=== PATIENT | male | born 1960 | race Hispanic/Latino ===

== ENCOUNTER 2021-04-22 06:36 | Observation (INO) | payer OTHER ==
[2021-04-21 11:44] LABS: BASOPHILS # (AUTO) 0.1 (0.0-0.1); BASOPHILS % 0.8 % (0.0-1.0); EOSINOPHILS # (AUTO) 0.3 (0.0-0.4); EOSINOPHILS % 3.8 % (0.0-6.0); HEMATOCRIT 40.6 % (38.2-49.6); HEMOGLOBIN 13.7 g/dL (14.0-18.0); LYMPHOCYTES % 11.7 % (18.0-39.1); MEAN CORPUSCULAR HEMOGLOBIN 30.9 pg (28-32); MEAN CORPUSCULAR HGB CONC 33.7 g/dL (31-35); MEAN CORPUSCULAR VOLUME 91.6 fL (81-99); MONOCYTES # (AUTO) 0.5 (0.2-0.8); MONOCYTES % 6.4 % (4.4-11.3); NEUTROPHILS # (AUTO) 6.4 (2.1-6.9); NEUTROPHILS % 76.9 % (38.7-80.0); PLATELET COUNT 252 x10e3/uL (140-360); RED BLOOD COUNT 4.43 x10e6/uL (4.3-5.7); RED CELL DISTRIBUTION WIDTH 12.9 % (11.7-14.4)
[2021-04-21 11:55] LABS: INR 0.91; PROTHROMBIN TIME 12.4 seconds (11.9-14.5)
[2021-04-21 11:56] LABS: PARTIAL THROMBOPLASTIN TIME 28.6 seconds (23.8-35.5)
[2021-04-21 12:02] LABS: CREATININE, SERUM 0.98 mg/dL (0.72-1.25)
[~2021-04-22] VITALS: Ht 167.6 cm; Wt 102.1 kg
[~2021-04-22 06:36] MED LIST: AMLODIPINE BESY10 MG PO; ATORVASTATIN CA20 MG PO; FUROSEMIDE40 MG PO; LEXAPRO10 MG PO; LISINOPRIL10 MG PO; MELOXICAM7.5 MG PO; METOPROLOL TART25 MG PO; MONTELUKAST SOD10 MG PO; OMEPRAZOLE40 MG PO; TRELEGY ELLIPT1 EAC1 INH
[2021-04-22] MEDS ORDERED: SODIUM CHLORIDE 0.9% 50ML 100 ML ONE (07:00)
[2021-04-22] MEDS ORDERED: ROPIVACAINE 246.25 MG, EPINEPHRINE HCL 1:1000 1ML 0.5 MG, CLONIDINE HCL 0.08 MG, KETORO... INJ ONE ×5 (07:30)
[2021-04-22] MEDS ORDERED: SUGAMMADEX SODIUM 200 MG/2 ML VIAL IV ONE (10:19)
[2021-04-22] MEDS ORDERED: TRANEXAMIC ACID 1,000 MG/10 ML ML ONE (11:00)
[2021-04-22] MEDS ORDERED: HYDROMORPHONE 1MG/1ML INJ ONE ×2 (11:20→11:42)
[2021-04-22] MEDS ORDERED: KETOROLAC TROMETHAMINE 30 MG/ML VIAL ONE (11:31)
[2021-04-22] MEDS ORDERED: FENTANYL CITRATE/PF 100MCG/2 ML INJ ONE (12:36)
[2021-04-22 13:25] VITALS: BP 136/84
[2021-04-22 13:49] VITALS: BP 136/84
[2021-04-22 16:00] VITALS: BP 124/78
[2021-04-22 16:34] VITALS: BP 124/78
[2021-04-22] MEDS ORDERED: HYDROCODONE/APAP 10MG-325MG TAB PO PRN (17:00)
== END 2021-04-22 18:49 | disposition home or self-care (01) ==
LOC: OR 06:36 → PACU V 11:14 → MED/SURG 13:10
PROVIDERS: ADMIT Orthopaedic Surgery; ATTEND Orthopaedic Surgery
DX: M17.11 Unilateral primary osteoarthritis, right knee (principal); M25.561 Pain in right knee; Z01.810 Encounter for preprocedural cardiovascular examination; Z01.812 Encounter for preprocedural laboratory examination; Z20.822 Contact with and (suspected) exposure to COVID-19; G47.33 Obstructive sleep apnea (adult) (pediatric); I10 Essential (primary) hypertension
CPT/HCPCS: 27447; 36415; 73560; 80048; 85025; 85610; 85730; 86850; 86900; 86920; 93005; 97116; 97162; 97530; C1713 ×3; C1776 ×2; G0378; J0171; J0690; J1170; J1885; J2795; J3010; U0002

== ENCOUNTER 2024-07-09 18:20 | Emergency (ER) | payer OTHER ==
[~2024-07-09] VITALS: Ht 167.6 cm; Wt 112.5 kg
[~2024-07-09 18:20] MED LIST changes: +ULTRAM 50MG50 MG PO
[2024-07-09 18:27] VITALS: TEMP 98.9
[2024-07-09] MEDS: ALBUTEROL SULF 0.083% NEB SOLN 3 ML NEB NEB STA (18:49)
[2024-07-09] MEDS: IPRATROPIUM BROMIDE 0.02% 2.5 ML NEB NEB ONE (18:50)
[2024-07-09 18:52] VITALS: PULSE 72; RESP 25; O2SAT 98
[2024-07-09 18:52] LABS: BASOPHILS % 0.5 % (0.0-1.0); EOSINOPHILS # (AUTO) 0.4 (0.0-0.4); EOSINOPHILS % 4.5 % (0.0-6.0); HEMATOCRIT 40.7 % (38.2-49.6); HEMOGLOBIN 14.1 g/dL (14.0-18.0); LYMPHOCYTES # (AUTO) 1.2 (1.0-3.2); LYMPHOCYTES % 15.1 % (18.0-39.1); MEAN CORPUSCULAR HEMOGLOBIN 32.7 pg (28-32); MEAN CORPUSCULAR HGB CONC 34.6 g/dL (31-35); MEAN CORPUSCULAR VOLUME 94.4 fL (81-99); MONOCYTES # (AUTO) 0.7 (0.2-0.8); MONOCYTES % 7.9 % (4.4-11.3); NEUTROPHILS # (AUTO) 5.8 (2.1-6.9); NEUTROPHILS % 71.4 % (38.7-80.0); PLATELET COUNT 197 x10e3/uL (140-360); RED BLOOD COUNT 4.31 x10e6/uL (4.3-5.7); RED CELL DISTRIBUTION WIDTH 12.9 % (11.7-14.4); WHITE BLOOD COUNT 8.19 x10e3/uL (4.8-10.8)
[2024-07-09] MEDS: METHYLPREDNISOLONE SOD SUCC 125 MG/2ML VIAL IV ONE (18:53)
[2024-07-09 19:15] LABS: ALBUMIN 3.5 g/dL (3.5-5.0); ALBUMIN/GLOBULIN RATIO 1.1 (0.8-2.0); ANION GAP 16.8 mmol/L (8-16); BILIRUBIN,TOTAL 0.5 mg/dL (0.2-1.2); CALCIUM 8.6 mg/dL (8.4-10.2); CREATININE, SERUM 0.89 mg/dL (0.72-1.25); POTASSIUM 3.8 mmol/L (3.5-5.1); TOTAL PROTEIN 6.6 g/dL (6.5-8.1)
[2024-07-09 19:21] LABS: TROPONIN I 0.002 ng/mL (0-0.300)
[2024-07-09 19:45] VITALS: PULSE 82; RESP 20
[2024-07-09] MEDS ORDERED: MEDROL4 M2 PO (20:08)
[2024-07-09 20:19] VITALS: BP 151/71; PULSE 82; RESP 22; O2SAT 100
== END 2024-07-09 20:21 | disposition home or self-care (01) ==
LOC: ER 18:33
DX: R06.02 Shortness of breath (principal); J45.901 Unspecified asthma with (acute) exacerbation; I10 Essential (primary) hypertension; I50.9 Heart failure, unspecified; E78.5 Hyperlipidemia, unspecified; J45.909 Unspecified asthma, uncomplicated; F32.A Depression, unspecified; G47.30 Sleep apnea, unspecified; E66.9 Obesity, unspecified
CPT/HCPCS: 36415; 71045; 80053; 82550; 83880; 84484; 85025; 93005; 94640; 94799; 99284; J2919

== ENCOUNTER 2024-09-04 17:40 | Emergency (ER) | payer MEDICARE ==
[~2024-09-04] VITALS: Ht 167.6 cm; Wt 120.2 kg
[~2024-09-04 17:40] MED LIST changes: +DEXAMETHASONE4 MG PO; +DOXYCYCLINE HY100 MG PO; +MEDROL4 M2 PO
[2024-09-04 18:56] LABS: BASOPHILS % 0.5 % (0.0-1.0); EOSINOPHILS # (AUTO) 0.3 (0.0-0.4); EOSINOPHILS % 4.9 % (0.0-6.0); HEMATOCRIT 40.5 % (38.2-49.6); HEMOGLOBIN 13.5 g/dL (14.0-18.0); LYMPHOCYTES % 16.2 % (18.0-39.1); MEAN CORPUSCULAR HEMOGLOBIN 32.3 pg (28-32); MEAN CORPUSCULAR HGB CONC 33.3 g/dL (31-35); MEAN CORPUSCULAR VOLUME 96.9 fL (81-99); MONOCYTES # (AUTO) 0.5 (0.2-0.8); MONOCYTES % 7.9 % (4.4-11.3); NEUTROPHILS # (AUTO) 4.2 (2.1-6.9); NEUTROPHILS % 70.2 % (38.7-80.0); PLATELET COUNT 177 x10e3/uL (140-360); RED BLOOD COUNT 4.18 x10e6/uL (4.3-5.7); RED CELL DISTRIBUTION WIDTH 12.4 % (11.7-14.4); WHITE BLOOD COUNT 5.92 x10e3/uL (4.8-10.8)
[2024-09-04] MEDS: HYDROCODONE/APAP 10MG-325MG TAB PO ONE (19:07)
[2024-09-04 19:20] LABS: ALBUMIN 3.4 g/dL (3.5-5.0); ALBUMIN/GLOBULIN RATIO 1.1 (0.8-2.0); ANION GAP 15.1 mmol/L (8-16); BILIRUBIN,TOTAL 0.5 mg/dL (0.2-1.2); CALCIUM 8.9 mg/dL (8.4-10.2); CREATININE, SERUM 0.85 mg/dL (0.72-1.25); POTASSIUM 4.1 mmol/L (3.5-5.1); TOTAL PROTEIN 6.4 g/dL (6.5-8.1)
[2024-09-04] MEDS ORDERED: HYDROCODON-ACE1 EAC9 PO (22:32)
[2024-09-04 22:45] VITALS: PULSE 71; RESP 17; TEMP 98.7; O2SAT 97
== END 2024-09-04 22:55 | disposition home or self-care (01) ==
LOC: ER 18:34
DX: R06.02 Shortness of breath (principal); S52.125A Nondisplaced fracture of head of left radius, initial encounter for closed fracture; M25.422 Effusion, left elbow; J45.909 Unspecified asthma, uncomplicated; I10 Essential (primary) hypertension; I50.9 Heart failure, unspecified; E78.5 Hyperlipidemia, unspecified; E66.9 Obesity, unspecified; G47.30 Sleep apnea, unspecified; F32.A Depression, unspecified; Z96.653 Presence of artificial knee joint, bilateral
CPT/HCPCS: 36415; 71045; 80053; 83880; 84484; 85025; 93005; 93971; 99284

== ENCOUNTER 2025-01-05 03:43 | Emergency (ER) | payer MEDICARE ==
[~2025-01-05] VITALS: Ht 167.6 cm; Wt 124.7 kg
[2025-01-05 03:43] VITALS: TEMP 98
[~2025-01-05 03:43] MED LIST changes: +HYDROCODON-ACE1 EAC9 PO
[2025-01-05] MEDS ORDERED: ALBUTEROL SULF 0.083% NEB SOLN 3 ML NEB ONE (03:53)
[2025-01-05 03:58] VITALS: PULSE 63; RESP 20; O2SAT 98
[2025-01-05] MEDS: METHYLPREDNISOLONE SOD SUCC 125 MG/2ML VIAL IV ONE (04:02)
[2025-01-05] MEDS: ALBUTEROL SULF 0.083% NEB SOLN 3 ML NEB NEB STA (04:02)
[2025-01-05] MEDS: IPRATROPIUM BROMIDE 0.02% 2.5 ML NEB NEB ONE (04:03)
[2025-01-05 04:11] LABS: BASOPHILS # (AUTO) 0.1 (0.0-0.1); BASOPHILS % 0.9 % (0.0-1.0); EOSINOPHILS # (AUTO) 0.6 (0.0-0.4); EOSINOPHILS % 8.2 % (0.0-6.0); HEMATOCRIT 44.1 % (38.2-49.6); HEMOGLOBIN 15.7 g/dL (14.0-18.0); LYMPHOCYTES # (AUTO) 1.6 (1.0-3.2); LYMPHOCYTES % 20.4 % (18.0-39.1); MEAN CORPUSCULAR HEMOGLOBIN 31.7 pg (28-32); MEAN CORPUSCULAR HGB CONC 35.6 g/dL (31-35); MEAN CORPUSCULAR VOLUME 88.9 fL (81-99); MONOCYTES # (AUTO) 0.7 (0.2-0.8); MONOCYTES % 8.6 % (4.4-11.3); NEUTROPHILS # (AUTO) 4.7 (2.1-6.9); NEUTROPHILS % 61.6 % (38.7-80.0); PLATELET COUNT 225 x10e3/uL (140-360); RED BLOOD COUNT 4.96 x10e6/uL (4.3-5.7); RED CELL DISTRIBUTION WIDTH 12.6 % (11.7-14.4); WHITE BLOOD COUNT 7.65 x10e3/uL (4.8-10.8)
[2025-01-05 04:36] LABS: ALBUMIN 3.7 g/dL (3.5-5.0); ANION GAP 15.6 mmol/L (8-16); BILIRUBIN,TOTAL 0.4 mg/dL (0.2-1.2); CALCIUM 8.6 mg/dL (8.4-10.2); CREATININE, SERUM 0.83 mg/dL (0.72-1.25); POTASSIUM 3.6 mmol/L (3.5-5.1); TOTAL PROTEIN 7.5 g/dL (6.5-8.1)
[2025-01-05 04:37] VITALS: PULSE 64; RESP 19
[2025-01-05] MEDS ORDERED: DOXYCYCLINE HY100 MG PO (05:36)
[2025-01-05] MEDS ORDERED: VENTOLIN HFA18 GM INH (05:38)
[2025-01-05 05:39] VITALS: BP 163/99; PULSE 72; RESP 19; O2SAT 96
== END 2025-01-05 05:43 | disposition home or self-care (01) ==
LOC: ER 03:50
DX: R06.02 Shortness of breath (principal); J18.9 Pneumonia, unspecified organism; J45.901 Unspecified asthma with (acute) exacerbation; I10 Essential (primary) hypertension; I50.9 Heart failure, unspecified; E78.5 Hyperlipidemia, unspecified; E66.9 Obesity, unspecified; G47.30 Sleep apnea, unspecified; F32.A Depression, unspecified
CPT/HCPCS: 36415; 71045; 80053; 83880; 84484; 85025; 93005; 94760; 94799; 99284; J2919

== ENCOUNTER 2025-02-12 02:16 | Emergency (ER) | payer MEDICARE ==
[~2025-02-12] VITALS: Ht 167.6 cm; Wt 129.3 kg
[~2025-02-12 02:16] MED LIST changes: +PREDNISONE20 MG PO; +VENTOLIN HFA18 GM INH
[2025-02-12 02:20] VITALS: TEMP 98.7
[2025-02-12] MEDS ORDERED: SODIUM CHLORIDE FLUSH 10 ML SYR IV PRN (02:30)
[2025-02-12] MEDS: ALBUTEROL/IPRATROPIUM 3 ML NEB NEB ONE (02:41)
[2025-02-12 02:42] VITALS: PULSE 67; RESP 16; O2SAT 97
[2025-02-12 02:48] LABS: BASOPHILS # (AUTO) 0.1 (0.0-0.1); EOSINOPHILS # (AUTO) 0.5 (0.0-0.4); EOSINOPHILS % 8.6 % (0.0-6.0); HEMATOCRIT 40.4 % (38.2-49.6); HEMOGLOBIN 14.1 g/dL (14.0-18.0); LYMPHOCYTES # (AUTO) 1.2 (1.0-3.2); LYMPHOCYTES % 18.7 % (18.0-39.1); MEAN CORPUSCULAR HEMOGLOBIN 30.9 pg (28-32); MEAN CORPUSCULAR HGB CONC 34.9 g/dL (31-35); MEAN CORPUSCULAR VOLUME 88.6 fL (81-99); MONOCYTES # (AUTO) 0.5 (0.2-0.8); MONOCYTES % 8.8 % (4.4-11.3); NEUTROPHILS # (AUTO) 3.8 (2.1-6.9); NEUTROPHILS % 62.4 % (38.7-80.0); PLATELET COUNT 177 x10e3/uL (140-360); RED BLOOD COUNT 4.56 x10e6/uL (4.3-5.7); RED CELL DISTRIBUTION WIDTH 12.8 % (11.7-14.4); WHITE BLOOD COUNT 6.15 x10e3/uL (4.8-10.8)
[2025-02-12 03:00] LABS: ALBUMIN 3.6 g/dL (3.5-5.0); ALBUMIN/GLOBULIN RATIO 1.1 (0.8-2.0); ANION GAP 15.1 mmol/L (8-16); BILIRUBIN,TOTAL 0.5 mg/dL (0.2-1.2); CALCIUM 8.4 mg/dL (8.4-10.2); CREATININE, SERUM 0.88 mg/dL (0.72-1.25); POTASSIUM 4.1 mmol/L (3.5-5.1); TOTAL PROTEIN 6.9 g/dL (6.5-8.1)
[2025-02-12 03:06] LABS: TROPONIN I 0.001 ng/mL (0-0.300)
[2025-02-12 04:15] VITALS: PULSE 74; RESP 20
[2025-02-12] MEDS ORDERED: PREDNISONE50 MG PO (04:19)
[2025-02-12 04:43] VITALS: BP 134/84; PULSE 71; RESP 18; O2SAT 95
== END 2025-02-12 04:44 | disposition home or self-care (01) ==
LOC: ER 02:25
DX: R06.02 Shortness of breath (principal); J45.901 Unspecified asthma with (acute) exacerbation; I10 Essential (primary) hypertension; I50.9 Heart failure, unspecified; E78.5 Hyperlipidemia, unspecified; G47.30 Sleep apnea, unspecified; E66.01 Morbid (severe) obesity due to excess calories; Z96.653 Presence of artificial knee joint, bilateral
CPT/HCPCS: 36415; 71045; 80053; 83880; 84484; 85025; 93005; 94640; 94760; 94799; 99284